=== PATIENT | male | born 1970 | race Native Hawaiian/Other Pacific Islander ===

== ENCOUNTER 2021-12-25 21:06 | Emergency (ER) | payer OTHER, SELFPAY ==
--- NOTE | ~2021-12-25 | CT_ITS ---
EXAMINATION: CT HEAD WITHOUT CONTRAST CLINICAL INFORMATION: Dizziness. COMPARISON: None TECHNIQUE: Contiguous axial imaging was performed from the skull base to vertex without intravenous administration of contrast. Coronal and sagittal reformatted images are performed at CT scanner This CT examination was performed using dose optimization techniques as appropriate, variously including the following: *Automated exposure control *Adjustment of mA and/or kV according to patient size (this includes techniques or standardized protocols for targeted exams where dose is matched to indication/reason for exam; i.e. extremities or head) *Use of iterative reconstruction technique DLP: 701 mGy-cm FINDINGS: There is no evidence of acute intracranial hemorrhage or territorial infarction. No abnormal mass effect or midline shift is seen. Smith to white matter differentiation is well preserved. No extra-axial fluid collections are identified. The ventricles are normal in size. There is no abnormal attenuation within the brain parenchyma. The osseous structures and soft tissues are normal. The mastoid air cells and visualized portions of the paranasal sinuses are well aerated. CT/CT head/brain wo con IMPRESSION: No acute intracranial pathology.
[2021-12-25 21:17] VITALS: BP 171/90; PULSE 86; RESP 18; TEMP 36.7; O2SAT 96; BMI 26.1
--- NOTE | 2021-12-25 22:48 | ED.DIZZY ---
HPI - Dizziness General Chief Complaint: Ear Problems Stated Complaint: ear pain/ vertigo Time Seen by Provider: 12/25/21 22:25 Source: patient Mode of arrival: ambulatory Limitations: no limitations History of Present Illness HPI Narrative: patient is diabetic, hypertension, coronary disease on baby aspirin noticed sudden onset of vertiginous feeling since early today with ringing in the left ear feels that has hearing loss also on the left side little off balance no nausea no vomiting no headache no palpitation or chest pain Related Data Previous Rx's Medication Instructions Recorded meclizine 25 mg tablet 25 mg PO TID PRN dizziness #20 tabs 12/25/21 Allergies Allergy/AdvReac Type Severity Reaction Status Date / Time aspirin Allergy Intermediate Rash Verified 12/25/21 21:16 Review of Systems Review of Systems: Yes all other systems are reviewed and are negative [facility] Social History Social History Advance Directives: No Advance Directives Information Provided: No Physical Exam Vital Signs: Vital Signs: Last Vital Signs Temp 98.0 F 12/25/21 21:17 Pulse 94 12/25/21 23:20 Resp 17 12/25/21 23:20 BP 169/88 H 12/25/21 23:20 Pulse Ox 98 12/25/21 23:20 O2 Del Method 12/25/21 23:20 BMI result Body Mass Index 26.1 Appearance: Alert. Oriented X3. No acute distress. Eyes: PERRLA, No Nystagmus ENT: Pharynx normal. Oral Mucosa moist tympanic membrane intact ??hearing loss in the left ear Neck: Normal inspection. Neck supple. CVS: Normal heart rate and rhythm. Pulses normal. Respiratory: No respiratory distress. Equal air entry bilateral, Abdomen: Soft and nontender. Bowel sounds are present,, no CVA tenderness Skin: Skin warm and dry. Normal skin color. Normal skin turgor. Extremities: No lower extremity edema. No calf tenderness Neuro: Oriented X 3. No motor deficit. No sensory deficit.No cerebellar signs , cranial nerves II-XII intact stable gait no tremors MDM - Dizziness MDM Narrative Medical decision making narrative: patient dizziness likely from benign positional vertigo vomited 1 time while having a CT scan after that feeling much better ambulating steady gait no cerebellar signs CT head is negative for acute will discharge patient on meclizine Discharge Plan Discharge Clinical Impression: Benign paroxysmal positional vertigo Patient Disposition: Home, Self-Care Instructions: Benign Paroxysmal Positional Vertigo (ED) Additional Instructions: care as advised medication as prescribed follow-up with PCP if not better Prescriptions: New meclizine 25 mg tablet 25 mg PO TID PRN (Reason: dizziness) Qty: 20 0RF Interventions: ED Discharge Assessment Last Done: 12/26/21 00:02 Discharge Date/Time: 12/26/21 00:04
[2021-12-25 23:20] VITALS: BP 169/88; PULSE 94; RESP 17; O2SAT 98
[2021-12-25] MEDS: Ondansetron ODT 4 MG TAB.RAPDIS TRANSLINGU (23:22)
[2021-12-25] MEDS: Meclizine HCl 25 MG TABLET 50 MG PO (23:22)
== END 2021-12-26 00:04 | disposition home or self-care (01) ==
PROVIDERS: Emergency Provider Internal Medicine; PCP Internal Medicine
DX: H81.12 Benign paroxysmal vertigo, left ear (principal); E11.9 Type 2 diabetes mellitus without complications; I10 Essential (primary) hypertension
CPT/HCPCS: 70450; 99282; 99284